=== PATIENT | male | born 1950 | race Caucasian/White ===

== ENCOUNTER → 2021-05-29 | Outpatient (CLI) | payer MEDICARE ==
[~2021-05-29] MED LIST: ASPI81TA45 PO; LISI-167 PO; LISI1TAB20 PO
[2021-05-29 13:56] LABS: INTERNATIONAL NORMALIZED RATIO 0.96 (0.93-1.1); PROTHROMBIN TIME 10.3 Seconds (9.6-11.5)
[2021-05-29 13:58] LABS: ALANINE AMINOTRANSFERASE 39 U/L (12-78); ALBUMIN 3.7 g/dL (3.4-5.0); ANION GAP 4 mmol/L (5-15); CALCIUM 8.7 mg/dL (8.5-10.1); CHLORIDE 106 mmol/L (98-107)
[2021-05-29 14:00] LABS: ALKALINE PHOSPHATASE 48 U/L (45-117); BILIRUBIN,TOTAL 0.5 mg/dL (0.2-1.0); CREATININE 0.93 mg/dL (0.7-1.3); TOTAL PROTEIN 6.7 g/dL (6.4-8.2)
[2021-05-29 14:01] LABS: BASOPHILS % (AUTO) 1 % (0-1); EOSINOPHILS % (AUTO) 2 % (1-7); LYMPHOCYTES % (AUTO) 26 % (22-44); MEAN CORPUSCULAR HEMOGLOBIN 32.1 pg (27.5-34.5); MEAN CORPUSCULAR HGB CONC 34.9 g/dL (33.2-36.2); MEAN PLATELET VOLUME 7.5 fL (7.4-10.4); MONOCYTES % (AUTO) 10 % (2-9); NEUTROPHILS % (AUTO) 61 % (42-75); PLATELET COUNT 223 x10^3/uL (130-400); RED BLOOD COUNT 5.12 x10^6/uL (4.38-5.82); RED CELL DISTRIBUTION WIDTH 13.7 % (9.4-14.8)
== END | disposition home or self-care (01) ==
LOC: STAR 12:38
PROVIDERS: ATTEND Neurological Surgery
DX: Z01.818 Encounter for other preprocedural examination (principal); M51.06 Intervertebral disc disorders with myelopathy, lumbar region
CPT/HCPCS: 36415; 71046; 80053; 85025; 85610; 85730; 93005

== ENCOUNTER 2021-06-04 11:57 | Inpatient (IN) | payer MEDICARE ==
[~2021-06-04] VITALS: Ht 182.9 cm; Wt 96.7 kg
[~2021-06-04 11:57] MED LIST changes: +BUPIVACAINE/PF 0.5% ONE; +EPINEPHRINE 1 MG/ML, 1ML ONE; +GENTAMICIN 80 MG/2 ML ONE; +THROMBIN 20,000 UNIT VIAL TP ONE; +VANCOMYCIN 1,000 MG ONE
[2021-06-04] MEDS ORDERED: MULT-751 PO (12:16)
[2021-06-04] MEDS ORDERED: ALEEVE PO (12:16)
[2021-06-04 12:17] VITALS: BP 139/81
[2021-06-04] MEDS ORDERED: CHLORHEXIDINE 15 ML UDC ONE (12:19)
[2021-06-04] MEDS ORDERED: LACTATED RINGERS 1,000 ML IV SCH (12:30)
[2021-06-04] MEDS ORDERED: CHLORHEXIDINE 15 ML UDC PO ONE (12:30)
[2021-06-04] MEDS ORDERED: MIDAZOLAM 1 MG/ML, 2ML ONE (12:50)
[2021-06-04] MEDS ORDERED: FENTANYL PF 250 MCG/5ML ONE (13:09)
[2021-06-04] MEDS ORDERED: SUCCINYLCHOLINE 20 MG/ML, 10ML ONE (13:50)
[2021-06-04] MEDS ORDERED: ROCURONIUM 10 MG/ML,10ML ONE (13:50)
[2021-06-04] MEDS ORDERED: PROPOFOL 10 MG/ML, 20ML ONE (13:50)
[2021-06-04] MEDS ORDERED: CEFAZOLIN 1,000 MG ONE (13:50)
[2021-06-04] MEDS ORDERED: ONDANSETRON 2MG/ML, 2ML ONE (13:50)
[2021-06-04] MEDS ORDERED: DEXAMETHASONE 4 MG/ML, 1ML ONE (13:50)
[2021-06-04] MEDS ORDERED: HYDR-2214 PO ×2 (15:12)
[2021-06-04] MEDS ORDERED: ONDANSETRON 2MG/ML, 2ML IVPush PRN (15:30)
[2021-06-04] MEDS ORDERED: METOCLOPRAMIDE 5 MG/ML, 2ML IV PRN (15:30)
[2021-06-04] MEDS ORDERED: KETOROLAC 30 MG/1 ML IV PRN (15:30)
[2021-06-04] MEDS ORDERED: LABETALOL 5MG/ML, 20ML IV PRN ×2 (15:30→17:30)
[2021-06-04] MEDS ORDERED: HYDROmorphone 1 MG/ML, 1ML INJ IV PRN (15:30)
[2021-06-04] MEDS ORDERED: MEPERIDINE/PF 25MG/0.5ML IVPush PRN (15:30)
[2021-06-04] MEDS ORDERED: ALBUTEROL SULFATE 2.5 MG/3 ML NPPB PRN (15:30)
[2021-06-04] MEDS ORDERED: DIAZEPAM 5 MG/ML, 2ML IV PRN ×2 (15:30)
[2021-06-04] MEDS ORDERED: PROMETHAZINE 25 MG/ML, 1ML IV PRN (15:30)
[2021-06-04] MEDS ORDERED: hydrALAzine 20 MG/ML, 1ML IV PRN (15:30)
[2021-06-04] MEDS ORDERED: OXYcodone 5 MG/5 ML ORAL.SOL UDC PO PRN (15:30)
[2021-06-04] MEDS ORDERED: KETOROLAC 30 MG/1 ML ONE (15:48)
[2021-06-04] MEDS ORDERED: ACETAMINOPHEN 650 MG/20.3 ML UDC ONE (15:48)
[2021-06-04] MEDS ORDERED: FENTANYL PF 100 MCG/2ML ONE (15:49)
[2021-06-04] MEDS ORDERED: OXYcodone 5 MG/5 ML ORAL.SOL UDC ONE (15:49)
[2021-06-04] MEDS: FENTANYL PF 100 MCG/2ML IV PRN ×2 (15:50→16:10)
[2021-06-04] MEDS ORDERED: DIAZEPAM 5 MG/ML, 2ML ONE (16:17)
[2021-06-04] MEDS ORDERED: DIPHENHYDRAMINE 50 MG/ML, 1ML IM PRN (17:30)
[2021-06-04] MEDS ORDERED: ACETAMINOPHEN 650 MG SUPP PR PRN (17:30)
[2021-06-04] MEDS ORDERED: DIPHENHYDRAMINE 25 MG CAPSULE PO PRN (17:30)
[2021-06-04] MEDS ORDERED: PROMETHAZINE 25 MG/ML, 1ML IM PRN (17:30)
[2021-06-04] MEDS ORDERED: ACETAMINOPHEN 500 MG TABLET PO PRN (17:30)
[2021-06-04] MEDS ORDERED: MAGNESIUM HYDROXIDE 8%, 30ML UDC PO PRN (17:30)
[2021-06-04] MEDS ORDERED: DIPHENHYDRAMINE 50 MG/ML, 1ML IVPush PRN (17:30)
[2021-06-04] MEDS ORDERED: BISACODYL 10 MG SUPP PR PRN (17:30)
[2021-06-04] MEDS ORDERED: METHOCARBAMOL 1,000 MG in DEXTROSE 5% 100 ML IV ONE (17:30)
[2021-06-04] MEDS ORDERED: morphine SULFATE 10 MG/ML, 1ML IV PRN (17:30)
[2021-06-04 18:20] VITALS: BP 139/83
[2021-06-04] MEDS: NS + 20MEQ KCL 1,000 ML IV SCH (18:36)
[2021-06-04] MEDS ORDERED: ZOLPIDEM 5MG TABLET PO PRN (21:00)
[2021-06-04] MEDS: HYDROcodone/APAP 10/325 MG TABLET PO PRN (21:20)
[2021-06-04] MEDS: CEFAZOLIN PMX 2GM/50ML 50 ML IVPB SCH (22:34)
[2021-06-05 00:02] VITALS: BP 124/80
[2021-06-05] MEDS: HYDROcodone/APAP 10/325 MG TABLET PO PRN (03:18)
[2021-06-05] MEDS: METHOCARBAMOL 750 MG in DEXTROSE 5% 100 ML IV SCH ×3 (03:18→21:29)
[2021-06-05] MEDS: NS + 20MEQ KCL 1,000 ML IV SCH (03:30)
[2021-06-05] MEDS: KETOROLAC 30 MG/1 ML IV PRN ×2 (05:00→21:30)
[2021-06-05] MEDS: CEFAZOLIN PMX 2GM/50ML 50 ML IVPB SCH (06:13)
[2021-06-05 08:00] VITALS: BP 120/72
[2021-06-05] MEDS: ONDANSETRON 2MG/ML, 2ML IV PRN (08:10)
[2021-06-05] MEDS: SENNA/DOCUSATE TABLET PO SCH (11:44)
[2021-06-05 14:07] VITALS: BP 137/69
[2021-06-05 18:44] VITALS: BP 143/82
[2021-06-06 00:44] VITALS: BP 155/80
[2021-06-06] MEDS: METHOCARBAMOL 750 MG in DEXTROSE 5% 100 ML IV SCH ×2 (05:43→12:35)
[2021-06-06] MEDS: KETOROLAC 30 MG/1 ML IV PRN (05:43)
[2021-06-06 07:48] VITALS: BP 120/81
[2021-06-06] MEDS ORDERED: HYDR1TAB53 PO (07:54)
[2021-06-06] MEDS ORDERED: METH-640 PO (07:54)
[2021-06-06] MEDS ORDERED: ONDA-89 PO (07:54)
[2021-06-06] MEDS ORDERED: SENN-211 PO (07:54)
[2021-06-06] MEDS: SENNA/DOCUSATE TABLET PO SCH (09:07)
[2021-06-06 13:30] VITALS: BP 124/82
[2021-06-06] MEDS: ONDANSETRON 2MG/ML, 2ML IV PRN (13:30)
[2021-06-06] MEDS ORDERED: HYDR-3248 PO (17:22)
[2021-06-07] MEDS ORDERED: METHOCARBAMOL 750 MG TABLET PO SCH (01:30)
== END 2021-06-06 13:45 | disposition home or self-care (01) | DRG 519 ==
LOC: OUT 11:57 → 3WST 16:50 → OUT 17:07
PROVIDERS: ADMIT Neurological Surgery; ATTEND Neurological Surgery
PROC: 00NY0ZZ Release Lumbar Spinal Cord, Open Approach (ICD-10-PCS; 2021-06-04)
PROC: 01NB0ZZ Release Lumbar Nerve, Open Approach (ICD-10-PCS; 2021-06-04)
PROC: 00UT0KZ Supplement Spinal Meninges with Nonautologous Tissue Substitute, Open Approach (ICD-10-PCS; 2021-06-04)
PROC: 4A11X4G Monitoring of Peripheral Nervous Electrical Activity, Intraoperative, External Approach (ICD-10-PCS; 2021-06-04)
PROC: 0SB20ZZ Excision of Lumbar Vertebral Disc, Open Approach (ICD-10-PCS; principal; 2021-06-04 14:00)
DX: M51.16 Intervertebral disc disorders with radiculopathy, lumbar region (principal); G97.41 Accidental puncture or laceration of dura during a procedure; M48.061 Spinal stenosis, lumbar region without neurogenic claudication; Y83.8 Other surgical procedures as the cause of abnormal reaction of the patient, or of later complication, without mention of misadventure at the time of the procedure; I10 Essential (primary) hypertension; Y92.89 Other specified places as the place of occurrence of the external cause; Z79.899 Other long term (current) drug therapy
CPT/HCPCS: 72100; 95938; 95941; G0378; J0171; J0690; J1100; J1885; J2250; J2405; J2704; J3010; J3360; J3370; J3480; C1781; J0330; J1580; J2800; J7120